=== PATIENT | male | born 1975 ===

== ENCOUNTER → 2017-03-20 | Outpatient (CLI) | payer BC ==
--- NOTE | 2017-03-20 15:59 | DIAGNOSTIC IMAGING REPORT ---
CHEST 2 VIEWS ROUTINE CLINICAL HISTORY: PLEURISY LEFT-SIDED CHEST PAIN COMPARISON STUDY: No previous studies for comparison. FINDINGS: The cardiac and mediastinal contours are normal. There is no evidence of focal pulmonary consolidation. There is no evidence of failure. No pleural effusions are visualized.[ IMPRESSION: No active disease in the chest. Electronically signed by: Oswald Sheehan M.D. 03/20/2017 3:58 PM Dictated Date/Time: 03/20/2017 3:57 PM
== END | disposition home or self-care (01) ==
LOC: C.RAD1850 14:31
PROVIDERS: ATTEND Physician Assistant Medical
DX: R09.1 Pleurisy (principal); R07.9 Chest pain, unspecified